=== PATIENT | male | born 1955 | race Caucasian/White ===

== ENCOUNTER 2023-10-06 07:21 | Day surgery (SDC) | payer MEDICARE, SELFPAY ==
--- NOTE | 2023-10-06 | PATH_ITS ---
[facility] Accession Number: [id number] No. of containers..02 Tissue . 01 Material submitted: . PART A: cecum - CECUM POLYP PART B: rectum - RECTAL POLYP . 01 Diagnosis: Part A: CECUM POLYP: Tubular adenoma. . Part B: RECTAL POLYP: Tubular adenoma. STO 10/10/2023 1131 Local . 01 Electronically signed: . Uday Villagran MD, Pathologist NPI- [id number] . 01 Gross description: . Part A: CECUM POLYP: Received in formalin is 1 fragment(s) of mathis, soft tissue measuring 0.3 x 0.3 x 0.3 cm submitted entirely in 1 cassette(s) . Part B: RECTAL POLYP: Received in formalin is 1 fragment(s) of mathis, soft tissue measuring 0.3 x 0.3 x 0.3 cm submitted entirely in 1 cassette(s) /VENESSA 10/10/2023 1131 Local . 01 Pathologist provided ICD-10: D12.0, D12.8 . 01 CPT . 142396, 531252 Specimen Comment: A courtesy copy of this report has been sent to [phone] Performed at: [address] [facility] [address], [place], [place] [id number] MD Uday Villagran MD Phone: [phone]
[2023-10-06] MEDS: LACTATED RINGERS 1,000 ML 42 ML IV (07:41)
[2023-10-06 07:43] VITALS: BP 138/88; PULSE 73; RESP 16; TEMP 36.4; O2SAT 97
--- NOTE | 2023-10-06 08:05 | P.HP_ITS ---
History of Present Illness History of Present Illness Date Patient Seen: 10/06/23 Time Patient Seen: 08:05 Chief complaint: Colonoscopy Narrative: 67-year-old with a personal history of colon polyps. He is here for surveillance colonoscopy. [facility] Social History Smoking Status: Never smoker alcohol intake: current Meds Home Medications and Allergies Home Medications Medication Instructions Recorded Confirmed Type amlodipine 10 mg tablet 10 mg PO DAILY 10/06/23 10/06/23 History hydrochlorothiazide 12.5 mg tablet 12.5 mg PO QAM 10/06/23 10/06/23 History olmesartan 40 mg tablet 40 mg PO DAILY 10/06/23 10/06/23 History Allergies Allergy/AdvReac Type Severity Reaction Status Date / Time No Known Drug Allergies Allergy Verified 10/06/23 07:42 Review of Systems Review of Systems ROS: Yes All systems reviewed with the patient and are negative except as other rocha documented Exam Vital Signs (past 8 hours): - 10/06/23 07:43 Temperature 97.5 F L Pulse Rate 73 Respiratory Rate 16 Blood Pressure 138/88 Pulse Oximetry 97 Oxygen Delivery Method Room Air Oxygen Delivery Method Room Air Const General: cooperative HENMT Head: normal to inspection Eyes General: appearance normal, both eyes and all related structures Neck Neck: normal visual inspection Chest Chest: normal inspection of the chest Resp Effort & Inspection: normal respiratory effort Cardio Rate: regular rate GI Inspection: normal to inspection Skin General: no rashes or lesions noted Neuro General: patient alert and patient awake Extrem General: normal to inspection and no pedal edema Psych Appearance: grossly normal Assessment & Plan Assessment & Plan narrative: This is a 67-year-old male with a personal history of colon polyps. Colonoscopy is pursued today.
--- NOTE | 2023-10-06 08:06 | PM.PREOP ---
Pre-operative Note Interval Note History & Physical reviewed/Exam performed by Physician: Yes Changes to H&P: No ASA Class (for procedural sedation): II
--- NOTE | 2023-10-06 09:21 | PM.OP.COLON ---
Operative Date/Time/Diagnoses Date of procedure: 10/06/23 Time of procedure: 09:21 Pre-op diagnosis: Personal history of colon polyps. Post-op diagnosis: same Procedure & Clinicians Study performed: Colonoscopy with cold snare polypectomy and cold forceps polypectomy Same procedure as scheduled: Yes Indications: Personal history of colon polyps Surgeon: Bo Donohue Procedure Notes SCOAP/Timeout: Done Procedure in detail: After the risks and benefits were explained, written and verbal informed consent was obtained. The patient was brought into the procedure room and placed into the left lateral decubitus position. Please see anesthesia notes for sedation details. Digital rectal examination was accomplished. The scope was introduced into the patient and advanced under direct visualization to the cecum as identified by the appendiceal orifice and ileocecal valve. The scope was slowly withdrawn to carefully examine the mucosa for any defects or lesions. Comprehensive imaging was accomplished throughout the rectum including the dentate line. The colon was decompressed, the scope was then removed from the patient who tolerated the procedure well. Adult colonoscope Bowel prep adequate Scope withdrawal time: 14 minutes Sedation minutes: 24 Complications: none Impression: There was a 4-5 mm sessile polyp in the cecum removed with cold snare. There was another 4-5 mm polyp in the rectum removed with cold snare. I thought there was a small focus of polyp remaining after this initial polypectomy and this was subsequently removed with cold forceps. Retroflexed views revealed grade 2 internal hemorrhoids with hypertrophied anal papillae. Endoscopic diagnosis 1. Colon polyps 2. Grade 2 hemorrhoids Post-procedure Plan for aftercare: 1. Await histology. 2. Repeat colonoscopy will likely be suggested for 5-7 years. Disposition: PACU
[2023-10-06 09:22] VITALS: BP 105/76; PULSE 60; RESP 18; TEMP 36.6; O2SAT 95
[2023-10-06 09:28] VITALS: BP 109/77; PULSE 61; RESP 16; O2SAT 94
[2023-10-06 09:32] VITALS: BP 109/77; PULSE 55; RESP 10; TEMP 36.2; O2SAT 98
[2023-10-06 09:45] VITALS: BP 121/84; PULSE 75; RESP 14; TEMP 36.3; O2SAT 98
== END 2023-10-06 09:51 | disposition home or self-care (01) ==
PROVIDERS: PCP Physician Assistant; Referring Provider Internal Medicine Gastroenterology; Visit Provider Internal Medicine Gastroenterology
PROC: 0DJD8ZZ Inspection of Lower Intestinal Tract, Via Natural or Artificial Opening Endoscopic (ICD-10-PCS; CPT 45378; principal; 2023-10-06 08:30)
DX: Z12.11 Encounter for screening for malignant neoplasm of colon (principal); Z86.010 Personal history of colon polyps; K64.1 Second degree hemorrhoids; D12.0 Benign neoplasm of cecum; D12.8 Benign neoplasm of rectum
CPT/HCPCS: 45385; 45380; J2704

== ENCOUNTER 2024-01-10 21:16 | Emergency (ER) | payer MEDICARE, SELFPAY ==
[2024-01-10] VITALS (7 sets, daily range): BP systolic 143–170; BP diastolic 84–103; PULSE 58–69; RESP 15–19; TEMP 36.9; O2SAT 94–98; BMI 29.8
--- NOTE | 2024-01-10 21:19 | DI.RAD.S_ITS ---
PROCEDURE: XR CHEST 1V INDICATIONS: chest pain TECHNIQUE: One view of the chest was acquired. COMPARISON: None. FINDINGS: Surgical changes and devices: None. Lungs and pleura: Left basilar atelectasis. The lungs are otherwise clear. No pleural effusions or pneumothorax. Mediastinum: Mediastinal contours appear normal. Heart size is normal. Bones and chest wall: No suspicious bony lesions. Overlying soft tissues appear unremarkable. IMPRESSION: Left basilar atelectasis. The lungs are otherwise clear. Dictated by: Mukund Girard M.D. on 01/10/2024 at 21:49 Approved by: Mukund Girard M.D. on 01/10/2024 at 21:50
--- NOTE | 2024-01-10 21:30 | EKG_ITS ---
[facility] [address] [address] [place] [id number] Test Date: 2024-01-10 Pat Name: Manuel Trejo Department: [facility] Room: Gender: Male [employer]: CHAR : 1955 Requested By: Order Number: [id number] Reading MD: Gilles Patino Measurements Intervals [place] Rate: 69 P: 46 MA: 194 QRS: -16 QRSD: 104 T: 10 QT: 418 QTc: 447 Interpretive Statements Normal sinus rhythm Incomplete right bundle branch block Electronically Signed On 01-12-2024 15:24:06 PDT by Gilles Patino
[2024-01-10] MEDS: ASPIRIN 81 MG CHEW TAB 324 MG PO (21:34)
[2024-01-10 21:40] LABS: Add Manual Diff / Slide Review NO; Basophils Absolute Auto 100 /uL (0-100); Basophils Percent Auto 0.9 % (0-2); Eosinophils Absolute Auto 200 /uL (0-450); Eosinophils Percent Auto 3.6 % (2-4); Hematocrit 48.4 % (41-53); Hemoglobin 16.9 g/dL (13.5-17.5); Lymphocytes Absolute Auto 2500 /uL (1100-4500); Lymphocytes Percent Auto 38.1 % (25-40); Mean Corpuscular HGB Conc 34.9 % (30-36); Mean Corpuscular Hemoglobin 31.5 PG (26-34); Mean Corpuscular Volume 90.3 fL (80-100); Monocytes Absolute Auto 600 /uL (0-900); Monocytes Percent Auto 9.7 % (3-14); Neutrophils Absolute Auto 3100 /uL (1500-7000); Neutrophils Percent Auto 47.7 % (50-75); Platelet Count 274 X10^3/uL (150-400); Red Blood Cell Count 5.36 X10^6/uL (4.5-5.9); Red Cell Distribution Width 13.8 % (11.6-14.8); White Blood Cell Count 6.5 X10^3/uL (4.5-11.0)
[2024-01-10 21:44] LABS: Prothrombin Time 11.2 SECONDS (9.4-12.5)
[2024-01-10 21:46] LABS: PTT Partial Thromboplastin Tim 37 SECONDS (25.1-36.5)
[2024-01-10 21:48] LABS: Alanine Aminotransferase 25 IU/L (<50); Albumin 4.3 g/dL (3.5-5.0); Albumin Globulin Ratio 1.5 (1.0-2.8); Alkaline Phosphatase 72 U/L (38-126); Aspartate Aminotransferase 27 IU/L (17-59); BUN Creatinine Ratio 18.1 (6-22); Bilirubin Total 1.2 mg/dL (0.2-1.3); Blood Urea Nitrogen 21 mg/dL (9-20); Calcium 9.5 mg/dL (8.4-10.2); Carbon Dioxide 33 mmol/L (22-32); Chloride 101 mmol/L (98-107); Creatine Kinase 74 U/L (55-170); Estimated Glomerular Filt Rate > 60 mL/min (>60); Globulin 2.9 g/dL (1.7-4.1); Glucose 117 mg/dL (80-110); HEMOLYSIS 44 (0-50); Lipase 196 U/L (23-300); Magnesium 2.5 mg/dL (1.6-2.3); Potassium 3.5 mmol/L (3.4-5.1); Sodium 139 mmol/L (137-145); Total Protein 7.2 g/dL (6.3-8.2)
[2024-01-10 21:59] LABS: NT-proBNP (BNP-Adult 18+) 129 pg/mL (<125); Troponin I < 0.012 ng/mL (0.01-0.034)
--- NOTE | 2024-01-10 22:34 | ED_ITS ---
HPI - Chest Pain General Chief Complaint: Chest Pain Stated Complaint: Chest px Time Seen by Provider: 01/10/24 21:31 Source: patient and family Mode of arrival: Ambulatory Limitations: no limitations History of Present Illness HPI narrative: 68-year-old male with history of hypertension presents by private vehicle from home for left-sided chest pain and elevated blood pressure readings at home. Patient states that for the last 3 days he has had an intermittent left-sided pain and a single-point in his left chest that he describes as a ?needle?. Nothing seems to make it better or worse. His daughter finally convinced him to be evalutated today. at bedside is extremely concerned about patient's blood pressure. Patient states that he otherwise feels fine. Denies shortness of breath, leg swelling, orthopnea, diaphoresis, nausea. Related Data Home Medications Medication Instructions Recorded Confirmed amlodipine 10 mg tablet 10 mg PO DAILY 10/06/23 10/06/23 hydrochlorothiazide 12.5 mg tablet 12.5 mg PO QAM 10/06/23 10/06/23 olmesartan 40 mg tablet 40 mg PO DAILY 10/06/23 10/06/23 Allergies Allergy/AdvReac Type Severity Reaction Status Date / Time No Known Drug Allergies Allergy Verified 10/06/23 07:42 Patient History Social History Smoking Status: Never smoker alcohol intake: current Smoking Status: Never smoker alcohol intake frequency: a few times a month Substance Use Type: does not use Exam Initial Vital Signs Initial Vital Signs: Vital Signs Temperature 98.5 F 01/10/24 21:22 Pulse Rate 64 01/10/24 21:22 Respiratory Rate 18 01/10/24 21:22 Blood Pressure 170/96 H 01/10/24 21:22 Pulse Oximetry 98 01/10/24 21:22 Oxygen Delivery Method Room Air 01/10/24 21:22 Const: Awake, alert, no acute distress, nontoxic appearing Cardiac: regular rate, regular rhythm RESP: unlabored, clear bilaterally, no wheezing GI: Soft, nontender, nondistended, no rebound, no guarding MSK: Atraumatic, full range of motion, pulses equal Skin: Warm, Dry, intact, no rashes Neuro: AO x3, CN II-XII grossly intact, moves all extremities Course Orders Ordered: Discontinued Medications Aspirin (Aspirin 81 Mg Chew Tab) 324 mg PO NOW ONE Stop: 01/10/24 21:20 Last Admin: 01/10/24 21:34 Dose: 324 mg Documented By: Vital Signs Vital signs: Vital Signs - 8 hr 01/10/24 21:22 01/10/24 21:36 01/10/24 21:37 Temperature 98.5 F Pulse Rate 64 69 66 Respiratory Rate 18 17 17 Blood Pressure 170/96 H Pulse Oximetry 98 96 96 Oxygen Delivery Method Room Air 01/10/24 21:37 01/10/24 22:00 01/10/24 22:00 Temperature Pulse Rate 61 Respiratory Rate Blood Pressure 161/94 H 163/88 H Pulse Oximetry 98 Oxygen Delivery Method 01/10/24 22:30 01/10/24 22:30 01/10/24 23:00 Temperature Pulse Rate 65 58 L Respiratory Rate 19 15 Blood Pressure 163/103 H Pulse Oximetry 97 96 Oxygen Delivery Method 01/10/24 23:00 Temperature Pulse Rate Respiratory Rate Blood Pressure 143/84 H Pulse Oximetry Oxygen Delivery Method MDM - Chest Pain Differential Diagnosis Differential diagnosis: Likely pneumothorax, atypical chest pain and costochondritis Lab Data 01/10/24 21:31 01/10/24 21:31 Labs: Lab Results 01/10/24 Range/Units 21:31 WBC 6.5 (4.5-11.0) X10^3/uL RBC 5.36 (4.5-5.9) X10^6/uL Hgb 16.9 (13.5-17.5) g/dL Hct 48.4 (41-53) % MCV 90.3 (80-100) fL MCH 31.5 (26-34) PG MCHC 34.9 (30-36) % RDW 13.8 (11.6-14.8) % Plt Count 274 (150-400) X10^3/uL Neut % (Auto) 47.7 L (50-75) % Lymph % (Auto) 38.1 (25-40) % [place] % (Auto) 9.7 (3-14) % Eos % (Auto) 3.6 (2-4) % Baso % (Auto) 0.9 (0-2) % Neut # (Auto) 3100 (0879-9280) /uL Lymph # (Auto) 2500 (4472-9096) /uL [place] # (Auto) 600 (0-900) /uL Eos # (Auto) 200 (0-450) /uL Baso # (Auto) 100 (0-100) /uL PT 11.2 (9.4-12.5) SECONDS INR 1.0 (0.9-1.3) APTT 37 H (25.1-36.5) SECONDS D-Dimer 221 (<500) ng/ml Sodium 139 (137-145) mmol/L Potassium 3.5 (3.4-5.1) mmol/L Chloride 101 (98-107) mmol/L Carbon Dioxide 33 H (22-32) mmol/L BUN 21 H (9-20) mg/dL Creatinine 1.16 (0.66-1.25) mg/dL Estimated GFR > 60 (>60) mL/min BUN/Creatinine Ratio 18.1 (6-22) Glucose 117 H (80-110) mg/dL Calcium 9.5 (8.4-10.2) mg/dL Magnesium 2.5 H (1.6-2.3) mg/dL Total Bilirubin 1.2 (0.2-1.3) mg/dL AST 27 (17-59) IU/L ALT 25 (<50) IU/L Alkaline Phosphatase 72 (38-126) U/L Total Creatine Kinase 74 (55-170) U/L Troponin I < 0.012 (0.01-0.034) ng/mL NT-Pro-B Natriuret Pep 129 H (<125) pg/mL Total Protein 7.2 (6.3-8.2) g/dL Albumin 4.3 (3.5-5.0) g/dL Globulin 2.9 (1.7-4.1) g/dL Albumin/Globulin Ratio 1.5 (1.0-2.8) Lipase 196 (23-300) U/L Imaging Data Chest x-ray: Radiologist's Impression: PROCEDURE: XR CHEST 1V INDICATIONS: chest pain TECHNIQUE: One view of the chest was acquired. COMPARISON: None. FINDINGS: Surgical changes and devices: None. Lungs and pleura: Left basilar atelectasis. The lungs are otherwise clear. No pleural effusions or pneumothorax. Mediastinum: Mediastinal contours appear normal. Heart size is normal. Bones and chest wall: No suspicious bony lesions. Overlying soft tissues appear unremarkable. IMPRESSION: Left basilar atelectasis. The lungs are otherwise clear. Dictated by: Mukund Girard M.D. on 01/10/2024 at 21:49 Approved by: Mukund Girard M.D. on 01/10/2024 at 21:50 ECG Data Interpretation: Normal sinus rhythm at 69 beats per minute. Normal FL, no ST T wave changes, no STEMI MDM Narrative Medical decision making narrative: Well-appearing patient with 3 days of needle like chest pain. EKG normal sinus rhythm. Reports incomplete right bundle-branch block, no priors for comparison. Laboratory work is reviewed, unremarkable. Troponin undetectable, D-dimer negative. Chest x-ray shows left basilar atelectasis, which could be causing or at least contributing to the patient's symptoms. While in the emergency department patient's blood pressure decreased to near normal without any interventions. Patient denied any change in symptoms while in the emergency department. Patient counseled on lab and imaging findings, recommended close pcp followup Discharge Plan Departure Patient Disposition: Home Clinical Impression: Chest pain Instructions: DI for Chest Pain Activity Restrictions/Additional Instructions: Your blood work here today did not show any signs of blood clot, heart attack, or infection. Your EKG was also reassuring. Your chest x-ray did not show any pneumonia or masses. Follow up with your primary care doctor about blood pressure medication adjustments. If your chest pain worsens or you experience any other concerning symptoms please return to the emergency department for repeat evaluation. Prescriptions: No Action amlodipine 10 mg tablet 10 mg PO DAILY olmesartan 40 mg tablet 40 mg PO DAILY hydrochlorothiazide 12.5 mg tablet 12.5 mg PO QAM Referrals: Juliane Lee PA-C [Primary Care Provider] - Stand Alone Forms: Patient Portal/API
[2024-01-10 22:54] LABS: D Dimer 221 ng/ml (<500)
[2024-01-11] VITALS: BP 142/81; PULSE 59; RESP 15; O2SAT 93
== END 2024-01-11 00:30 | disposition home or self-care (01) ==
PROVIDERS: Emergency Provider Emergency Medicine; PCP Physician Assistant
DX: R07.9 Chest pain, unspecified (principal); I45.10 Unspecified right bundle-branch block; R03.0 Elevated blood-pressure reading, without diagnosis of hypertension
CPT/HCPCS: 36415; 71045; 80053; 82550; 83690; 83735; 83880; 84484; 85025; 85379; 85610; 85730; 93005; 99284

== ENCOUNTER → 2024-11-29 06:50 | Outpatient (CLI) | payer MEDICARE, SELFPAY ==
--- NOTE | 2024-11-29 06:54 | DI.ECHO.S_ITS ---
[facility] : : [address] : : [place] : : [id number] : : Phone: [phone] Echocardiogram Report + + :Name: IKER PACHECO Study Date: 11/29/2024 Height: 69 in : :[facility] ReadingLocation: Weight: 204 lb : : Gender: Male BSA: 2.1 m2 : :: 1955 Age: 68 yrs BP: 135/91 mmHg: :Reason For Study: ATRIAL FIBRILLATION : :Ordering Physician: DANII CABRALES : :ALEX Performed By: Farnaz Farris : :Referring: DANII CABRALES : + + Interpretation Summary Normal left ventricle size with ejection fraction 60-65%. The left atrium is mildly dilated. Mild aortic valve sclerosis. Procedure: A two-dimensional transthoracic echocardiogram with color flow and Doppler was performed. The study quality was technically adequate. There is no prior echocardiogram noted for this patient. The patient was in sinus bradycardia with heart rates between 48-52 bpm during the exam. Left Ventricle: The left ventricle is normal in size and wall thickness. The ejection fraction is estimated to be 60-65%. There are no focal wall motion abnormalities. Normal diastolic function. Right Ventricle: The right ventricle is normal in size and function. Atria: The left atrium is mildly dilated. Right atrial size is normal. There is no Doppler evidence for an interatrial shunt. Mitral Valve: The mitral valve leaflets appear to open well. There is trace mitral regurgitation. Aortic Valve: The aortic valve is trileaflet. The aortic valve opens well. There is mild aortic valve sclerosis. There is no aortic valve stenosis. There is trace aortic regurgitation. Tricuspid Valve: The tricuspid valve leaflets are thin and pliable. There is trace tricuspid regurgitation. The right ventricular systolic pressure is estimated to be at least 19 mmHg based on an estimated right atrial pressure of 3 mm Hg. Pulmonic Valve: The pulmonic valve leaflets are thin and pliable; valve motion is normal. There is mild pulmonic regurgitation. Great Vessels: The aortic root is normal size. The dimensions of the ascending aorta are normal. The IVC is of normal diameter and collapses greater than 50% with a sniff. This suggests a low right atrial pressure of 3 mm Hg. Pericardium/ Pleura There is no pericardial effusion. There is no pleural effusion. MMode/2D Measurements & Calculations LVIDd: 5.1 cm LVOT diam: 2.2 cm LVIDs: 3.1 cm Ao root diam: 3.6 cm FS: 40.0 % asc Aorta Diam: 3.7 cm EPSS: 0.32 cm Ao Arch Diam (Prox Trans): 3.6 cm IVSd: 0.84 cm LVPWd: 0.82 cm LV hankins. diameter/BSA (cm/m^2): 2.4 LV sys. diameter/BSA (cm/m^2): 1.5 LA A2 area: 24.3 cm2 RA long axis: 5.2 cm LA A4 area: 24.3 cm2 RA area: 17.3 cm2 LA length (vol): 6.3 cm RA vol: 48.8 ml LA vol: 79.7 ml RA : 23.4 ml/m2 LA vol index: 38.3 ml/m2 IVC diam: 2.0 cm RVD1 (basal): 4.4 cm RVD2 (mid): 3.1 cm TAPSE: 2.5 cm Doppler Measurements & Calculations Ao V2 max: 142.1 cm/sec LVOT Max Stoney: 97.9 cm/sec Ao V2 mean: 93.7 cm/sec LV V1 max P.8 mmHg Ao max P.1 mmHg LV V1 VTI: 24.0 cm Ao mean P.0 mmHg MYA(I,D): 3.1 cm2 Ao V2 VTI: 28.9 cm MYA(V,D): 2.6 cm2 sev ratio: 0.83 MYA indexed to BSA (cm^2/m^2): 1.5 MV E max stoney: 77.2 cm/sec TR max stoney: 199.8 cm/sec MV A max stoney: 53.7 cm/sec TR max P.0 mmHg MV E/A: 1.4 PA V2 max: 100.4 cm/sec Med Peak E' Stoney: 7.9 cm/sec PA V2 mean: 70.7 cm/sec E/E' med: 9.7 PA mean P.2 mmHg Lat Peak E' Stoney: 11.7 cm/sec PA pr(Accel): 34.0 mmHg E/E' lat: 6.6 E/e' average: 8.2 MV dec time: 0.20 sec SV(LVOT): 90.5 ml Electronically signed by: Zonia Cid on Reading Physician:11/29/2024 09:57 AM
== END ==
PROVIDERS: PCP Physician Assistant; Referring Provider Family Medicine; Visit Provider Family Medicine
DX: I35.8 Other nonrheumatic aortic valve disorders (principal); I37.1 Nonrheumatic pulmonary valve insufficiency; I48.91 Unspecified atrial fibrillation; I10 Essential (primary) hypertension
CPT/HCPCS: 93306